=== PATIENT | female | born 1980 | race Two or more races ===

== ENCOUNTER → 2020-12-24 | Outpatient (CLI) | payer MEDICARE ==
[2020-12-24 10:57] LABS: BASOPHILS % (AUTO) 1 % (0-1); EOSINOPHILS % (AUTO) 1 % (1-7); LYMPHOCYTES % (AUTO) 34 % (22-44); MEAN CORPUSCULAR HEMOGLOBIN 25.4 pg (27.0-34.8); MEAN CORPUSCULAR HGB CONC 32.7 g/dL (32.4-35.8); MONOCYTES % (AUTO) 6 % (2-9); NEUTROPHILS % (AUTO) 58 % (42-75); PLATELET COUNT 434 x10^3/uL (130-400); RED BLOOD COUNT 3.64 x10^6/uL (3.82-5.3); RED CELL DISTRIBUTION WIDTH 16.5 % (9.6-15.2)
[2020-12-24 10:59] LABS: ANION GAP 6 mmol/L (5-15); CALCIUM 9.1 mg/dL (8.5-10.1); CHLORIDE 109 mmol/L (98-107)
[2020-12-24 11:00] LABS: INTERNATIONAL NORMALIZED RATIO 0.98 (0.93-1.1); PROTHROMBIN TIME 10.5 Seconds (9.6-11.5)
[2020-12-24 11:14] LABS: MD NO
== END | disposition home or self-care (01) ==
LOC: STAR 08:54
PROVIDERS: ATTEND Neurological Surgery
DX: Z01.812 Encounter for preprocedural laboratory examination (principal); Z20.822 Contact with and (suspected) exposure to COVID-19; G25.0 Essential tremor
CPT/HCPCS: 80048; 85025; 85610; 85730; 87635

== ENCOUNTER 2020-12-30 09:48 | Day surgery (SDC) | payer MEDICARE, MEDICAID ==
[~2020-12-30] VITALS: Ht 160 cm; Wt 84.9 kg
[2020-12-30] MEDS ORDERED: LACTATED RINGERS 1,000 ML IV SCH (10:30)
[2020-12-30] MEDS ORDERED: CHLORHEXIDINE 15 ML UDC MM ONE (10:30)
[2020-12-30] MEDS ORDERED: FENUGREEK PO (10:42)
[2020-12-30] MEDS ORDERED: IRON PO (10:42)
[2020-12-30] MEDS ORDERED: ELDERBERRY PO (10:42)
[2020-12-30] MEDS ORDERED: VIT D PO (10:42)
[2020-12-30 10:51] LABS: HCG UR SG 1.008 (1.003-1.030)
[2020-12-30] MEDS ORDERED: EPINEPHRINE 1 MG/ML, 1ML ONE (12:25)
[2020-12-30] MEDS ORDERED: BUPIVACAINE/PF 0.5% ONE (12:25)
[2020-12-30] MEDS ORDERED: BACITRACIN 50,000 UNIT ONE (12:25)
[2020-12-30] MEDS ORDERED: BACITRACIN OINT 500U/GM, 15 GM ONE (12:25)
[2020-12-30] MEDS ORDERED: FENTANYL PF 100 MCG/2ML ONE (12:40)
[2020-12-30] MEDS ORDERED: MIDAZOLAM 1 MG/ML, 2ML ONE (12:40)
[2020-12-30] MEDS ORDERED: CEFAZOLIN 1,000 MG ONE (13:07)
[2020-12-30] MEDS ORDERED: DEXAMETHASONE 4 MG/ML, 1ML ONE (13:07)
[2020-12-30] MEDS ORDERED: ONDANSETRON 2MG/ML, 2ML ONE (13:07)
[2020-12-30] MEDS ORDERED: PROPOFOL 10 MG/ML, 20ML ONE (13:07)
[2020-12-30] MEDS ORDERED: LORazepam 2 MG/ML, 1ML IVPush PRN (13:30)
[2020-12-30] MEDS ORDERED: ACETAMINOPHEN 325 MG TABLET PO PRN (13:30)
[2020-12-30] MEDS ORDERED: PROMETHAZINE 25 MG SUPP PR PRN (13:30)
[2020-12-30] MEDS ORDERED: HYDROmorphone 1 MG/ML, 1ML INJ IVPush PRN (13:30)
[2020-12-30] MEDS ORDERED: FENTANYL PF 100 MCG/2ML IV PRN (13:30)
[2020-12-30] MEDS ORDERED: OXYcodone 5 MG/5 ML ORAL.SOL UDC PO PRN (13:30)
[2020-12-30] MEDS ORDERED: ONDANSETRON 2MG/ML, 2ML IVPush PRN (13:30)
[2020-12-30] MEDS ORDERED: PROMETHAZINE 25 MG/ML, 1ML IVPush PRN (13:30)
[2020-12-30] MEDS ORDERED: ACETAMINOPHEN 325 MG TABLET ONE (14:16)
== END 2020-12-30 15:20 | disposition home or self-care (01) ==
LOC: OUT 09:48
PROVIDERS: ATTEND Neurological Surgery
DX: G25.0 Essential tremor (principal); Z95.0 Presence of cardiac pacemaker; Z79.899 Other long term (current) drug therapy; Z91.018 Allergy to other foods; Z98.890 Other specified postprocedural states
CPT/HCPCS: 61886; 81025; C1767; J0171; J0690; J1100; J2250; J2405; J2704; J3010; J7120